=== PATIENT | female | born 1990 | race Caucasian/White ===

== ENCOUNTER 2017-08-17 12:36 | Outpatient (CLI) | payer OTHER ==
--- NOTE | 2017-08-17 15:26 | MRI ---
EXAM: BRAIN MRI WITH AND WITHOUT CONTRAST: COMPARISON: 11/23/16. HISTORY: Multiple sclerosis. Annual exam. TECHNIQUE: A brain MRI is performed with and without intravenous Gadolinium administration. Multisequential, mu ltiplanar imaging is performed. FINDINGS: No hemorrhage on the axial gradient echo sequence. Calvarium has a normal marrow signal intensity. Midline brain parenchymal structures are unremarkabl e. Stable FLAIR and white matter hyperintensities as well as stable hyperintensities along the corpus ca llosum. There is no associated restricted diffusion. No associated enhancement. Central arterial f low voids are maintained. No restricted diffusion. There is opacification of bilateral mastoid air cells, unchanged. Mild mucosal thickening of the sin uses. Developmental venous anomaly in the right frontal region is redemonstrated. No pathologic enhancement of the brain parenchyma. IMPRESSION: 1. Essentially stable demyelinating plaques. 2. No evidence of enhancement or restricted diffusion to suggest active demyelination. POS: [facility]
--- NOTE | 2017-08-17 15:33 | MRI ---
CERVICAL SPINE MRI WITH AND WITHOUT CONTRAST: DATE: 08/17/17. COMPARISON: 11/23/16. HISTORY: Multiple sclerosis. TECHNIQUE: Multiplanar, multisequence MR imaging of the cervical spine is obtained with and without contrast. FINDINGS: The sagittal STIR imaging demonstrates no focal area of osseous marrow edema. There is mild degenerative change at the atlantoaxial interspace, stable. C2-3: Mild facet hypertrophy on the left. No significant central canal or neural foraminal stenosis . C3-4: There is mild facet and uncovertebral osteophyte formation on the left. There is disk desicca tion. There is no significant central canal or neural foraminal stenosis. C4-5: Intervertebral disk height and signal intensity is within normal limits. No significant centr al canal or neural foraminal stenosis. C5-6: There is disk desiccation and mild disk bulge with partial effacement of the ventral thecal sa c and mild central canal stenosis. No significant neural foraminal stenosis. C6-7: No significant central canal or neural foraminal stenosis. C7-T1: No significant central canal or neural foraminal stenosis. There is a central/posterior T2 hyperintense lesion within the cervical cord measuring 8 mm in transv erse dimension at the C3 level, stable when compared to the 11/23/16 exam. At C4-5 level, there is a faint lesion of increased T2 signal intensity within the right lateral aspe ct of the cervical cord, which appears less conspicuous on the 11/23/16 examination. No definite new cervical cord lesion is identified. The postcontrast imaging demonstrates no abnormal enhancement involving the cervical cord, the imaged osseous structures, or the intervertebral disks. IMPRESSION: Two foci of abnormal signal intensity identified within the cervical cord, consistent with demyelinat ing disease. The lesion involving the majority of the cord at C3 is unchanged. The lesion involving the right hemicord at C5 is less conspicuous than on prior imaging. No new lesions are seen. POS: [facility]
== END 2017-08-17 12:37 | disposition home or self-care (01) ==
LOC: SCSMRI 12:36
PROVIDERS: ATTEND Psychiatry & Neurology Neurology
DX: G35 Multiple sclerosis (principal); M89.9 Disorder of bone, unspecified
CPT/HCPCS: 70553; 72156

== ENCOUNTER 2018-05-30 12:24 | Outpatient (CLI) | payer OTHER ==
[~2018-05-30 12:24] MED LIST: Gadobenate Dimeglumine 529 MG/1 ML (20ML VIAL) ONE
--- NOTE | 2018-05-30 15:51 | MRI ---
BRAIN MRI WITH AND WITHOUT CONTRAST: COMPARISON: 08/17/17. HISTORY: Multiple sclerosis. Annual exam. TECHNIQUE: A brain MRI was performed with and without intravenous Gadolinium administration. Multisequential, m ultiplanar imaging was performed. FINDINGS: No parenchymal mass, mass effect, or midline shift. Brain volume, age appropriate. Cortical alva-wh ite matter differentiation is preserved. The ventricles and sulci are patent and symmetric. The calvarium has a normal T1 marrow signal intensity. Midline brain parenchymal structures are unre markable. This corresponds to a 4 mm enhancing focus in the left occipital lobe, not appreciated on the previou s exam. The sagittal FLAIR sequence does demonstrate a hyperintensity corresponding to the area of e nhancement suggesting an active demyelinating plaque. Central arterial flow voids are maintained. Absent restricted diffusion. Note is made of a developmental venous anomaly along the right frontal lobe, unchanged. IMPRESSION: Solitary focus of enhancement in the left occipital white matter suggesting an active demyelinating p laque. Additional areas of active demyelination are not appreciated. POS: [facility]
--- NOTE | 2018-05-30 16:06 | MRI ---
MRI CERVICAL SPINE WITH AND WITHOUT CONTRAST: 05/30/18 HISTORY: Followup exam. Multiple sclerosis. COMPARISON: 08/17/17. TECHNIQUE: Cervical spine MRI is performed with and without intravenous gadolinium administration. Multisequenti al, multiplanar imaging is performed. FINDINGS: Appropriate T1 narrow signal intensity of the cervical vertebrae. Vertebral body height is maintained . There is no fracture. No significant STIR hyperintensity to suggest vertebral body edema or ligamen tous injury. The visualized brain parenchyma is unremarkable. There is abnormal signal intensity in t he upper cervical cord. Postcontrast images do not demonstrate any associated enhancement. Throughout the cervical spine, there is no significant central canal stenosis or foraminal narrowing. C2-C3: No significant disc osteophyte complex. No significant central canal stenosis or neural forami nal narrowing. C3-C4: No significant disc osteophyte complex. No significant central canal stenosis or foraminal jorden rowing. C4-C5: No significant disc osteophyte complex. Minimal central disc bulge is noted. No significant ce ntral canal stenosis or foraminal narrowing. C5-C6: Mild loss of disc space height. There is a central right paracentral disc bulge. Ventral CSF s ignal intensity is maintained. Minimal central canal stenosis. Neural foramina are patent. C6-C7 and C7-T1: No significant central canal stenosis or foraminal narrowing. There is abnormal T2 signal intensity in the cervical cord starting at the superior end plate of C3 e xtending inferiorly to the mid C4 level. Additional subtle hyperintensity on the right aspect of the cord is noted at the C4-C5 disc space. The overall degree and distribution of cord signal abnormality is unchanged. No significant associated cord expansion or atrophy. No associated enhancement. IMPRESSION: 1. Essentially stable intramedullary lesion in the upper cervical cord at C3 and C4. No associat ed enhancement to suggest active demyelination. 2. Stable lesion at the C4-C5 level. POS: [facility]
== END 2018-05-30 12:25 | disposition home or self-care (01) ==
LOC: SCSMRI 12:24
PROVIDERS: ATTEND Psychiatry & Neurology Neurology
DX: G35 Multiple sclerosis (principal); M89.9 Disorder of bone, unspecified
CPT/HCPCS: 70553; 72156; A9579

== ENCOUNTER 2019-03-19 12:56 | Outpatient (CLI) | payer OTHER ==
--- NOTE | 2019-03-19 16:27 | MRI ---
MRI Cervical spine with and without contrast: HISTORY: Multiple sclerosis. Follow-up evaluation. COMPARISON: 05/30/2018. FINDINGS: The craniocervical junction is unremarkable. Again noted is the abnormal increased T2-weighted signal intensity lesion in the upper cervical spina l cord at the level of the C3 vertebral body unchanged in size or appearance. The signal abnormality in the right hemicord at the C4-5 level is also again seen and stable. No new signal abno rmalities are seen in the spinal cord, and there is no expansion of the spinal cord. No abnormal areas of enhancement are seen within the spinal cord. Paravertebral soft tissues have a normal appearance and normal signal intensity. Normal signal intensity is seen in the bone marrow. C1-2:No significant stenosis. C2-3: There is no disc bulge or disc herniation. The central spinal canal and neural foramina are at the C4-5 level is again seen and unchanged. Patent. C3-4: There is a minimal disc osteophyte complex present. There is no significant narrowing of the ce ntral spinal canal. Mild bilateral neural foraminal narrowing is present. C4-5: There is no disc bulge or disc herniation. The central spinal canal and neural foramina are pat ent. C5-6: Again, there is a mild broad-based disc osteophyte complex which does result in mild effacement of ventral subarachnoid space. The neural foramina are patent C6-7: There is no disc bulge disc herniation. The central spinal canal and neural foramina are patent . C7-T1: There is no disc bulge or disc herniation. The central spinal canal and neural foramina are pa tent. IMPRESSION: 1. Stable intramedullary lesion upper cervical spinal cord at the level of C3 vertebral body with an additional signal abnormality in the right aspect of spinal cord at the C4-5 level likely corresponding to patient's known demyelinating process. No associated abnormal enhancement is seen to suggest an active demyelinating plaque. No new signal abnormalities are seen in the spinal cord. 2. Mild degenerative changes in the cervical spine unchanged from prior study.
--- NOTE | 2019-03-19 16:30 | MRI ---
MRI BRAIN WITH AND WITHOUT CONTRAST: DATE: 03/19/19 HISTORY: 28-year-old female with multiple sclerosis. Follow-up. COMPARISON: 05/30/18. TECHNIQUE: Multiple sequences obtained in axial, sagittal, and coronal planes; pre and post IV injection of gado linium-based contrast agent: 18 mL MultiHance. FINDINGS: Again noted are the several small focal T2-hyperintense white matter lesions, including one in the le ft upper corpus callosum and centrum semiovale, a tiny one lateral to that in the left webb radiata , one in the left webb radiata adjacent to the posterior body of the left lateral ventricle, and in the periventricular white matter adjacent to the right lateral ventricular trigone. Previously, there was a tiny focus of intra-axial enhancement in the left occipital deep white matter . That has resolved. Again noted is the enhancing medusa head intra-axial blood vessels and the large draining vein, in th e right parasagittal frontal lobe representing DVA (developmental venous anomaly). No new demyelinating lesions are identified. Ventricles are normal in size and configuration. No rece nt or remote intra-axial hemorrhage. No mass effect, midline shift, or extra-axial fluid collection. IMPRESSION: 1. Evidence for multiple sclerosis: A small number of demyelinating plaque lesions in the cerebrum bilaterally, left more than right. 2. Previous tiny focus of active demyelination involving a left occipital white matter lesion, no lo nger enhances. 3. Otherwise, no other interval change. JN Chloé POS: [facility]
== END 2019-03-19 12:57 | disposition home or self-care (01) ==
LOC: SCSMRI 12:56
PROVIDERS: ATTEND Nurse Practitioner Acute Care
DX: G35 Multiple sclerosis (principal); M47.812 Spondylosis without myelopathy or radiculopathy, cervical region; I67.2 Cerebral atherosclerosis; G37.9 Demyelinating disease of central nervous system, unspecified; G95.9 Disease of spinal cord, unspecified
CPT/HCPCS: 70553; 72156; A9577

== ENCOUNTER 2019-07-17 17:04 | Observation (INO) | payer OTHER ==
[2019-07-17] MEDS ORDERED: Morphine 4 MG/ML VIAL ONE ×2 (18:07→19:26)
[2019-07-17] MEDS ORDERED: Ondansetron PF 4 MG/2 ML Vial ONE (18:07)
[2019-07-17 18:15] LABS: #Eosinphils 0.1 thou/uL (0.0-0.7); #Monocytes 0.6 thou/uL (0.11-0.59); #Neutrophils 6.5 thou/uL (1.40-6.50); %Basophils 0.5 % (0.0-1.0); %Eosinophils 0.9 % (0.0-10.0); %Lymphocytes 21.8 % (21.0-51.0); %Monocytes 6.1 % (0.0-10.0); %Neutrophils 70.6 % (42.0-75.0); Hemoglobin 12.3 g/dL (12.0-16.0); Mean Corpuscular HGB CONC 34.5 g/dL (32.0-36.0); Mean Corpuscular Hemoglobin 31.9 pg (27.0-31.0); Mean Corpuscular Volume 92.5 fL (78.0-98.0); Mean Platelet Volume 7.5 fL (7.4-10.4); Platelet Count 233 thou/uL (130-400); RBC Distribution Width 12.4 % (11.5-14.5); Red Blood Cell (RBC) Count 3.87 mill/uL (4.20-5.40); White Blood Cell (WBC) Count 9.2 thou/uL (4.8-10.8)
[2019-07-17 18:37] LABS: ALT (SGPT) 21 U/L (8-55); AST (SGOT) 16 U/L (5-34); Albumin 4.3 g/dL (3.5-5.0); Alkaline Phosphatase 83 U/L (40-110); Anion Gap 11 mmol/L (10-20); BUN (Urea Nitrogen) 10 mg/dL (7.0-18.7); Bilirubin, Total 0.4 mg/dL (0.2-1.2); Calc. Creatinine Clearance 0 mL/min (70-130); Calcium 9.4 mg/dL (7.8-10.44); Carbon Dioxide 24 mmol/L (22-29); Chloride 107 mmol/L (98-107); Estimated GFR-MDRD 68; Globulin 2.9 g/dL (2.4-3.5); Glucose 94 mg/dL (70-105); Potassium 4.1 mmol/L (3.5-5.1); Protein, Total 7.2 g/dL (6.0-8.3); Sodium 138 mmol/L (136-145)
[2019-07-17 18:59] LABS: Bilirubin Negative (Negative); Blood, Urine 2+ (Negative); Calcium Oxalate Crystals Rare HPF (None Seen); Clarity Clear (Clear); Glucose, Urine (Dipstick) Normal (Negative); Leukocyte Negative Leu/uL (Negative); Mucous/LPF 2+ LPF (<2+); Nitrite Negative (Negative); Protein, Urine (Dipstick) 70 mg/dL (Neg-Trace); RBC/HPF 21-50 HPF (0-3); Squamous Epithelial 0-3 HPF (0-3); Urobilinogen Normal mg/dL (Less than 2)
[2019-07-17 19:01] LABS: Pregnancy Test - Urine (BHCG) Negative (Negative); Pregu Control Background? CLEAR/WHITE (CLR/WHITE); Pregu Control Bar Appear? YES (CONTROL BAR); Specific Gravity 1.033 (1.002-1.036)
[2019-07-17 19:08] LABS: Bacteria/HPF Rare-Few HPF (None Seen)
[2019-07-17] MEDS ORDERED: Acetaminophen 325 MG TAB PO PRN (22:39)
[2019-07-17] MEDS ORDERED: Ondansetron PF 4 MG/2 ML Vial IVP PRN (22:39)
[2019-07-17] MEDS ORDERED: Morphine 4 MG/ML VIAL SLOW IVP PRN (22:40)
[2019-07-17 23:30] VITALS: BMI 33.6
[2019-07-17] MEDS: Sodium Chloride 0.9% 1,000 ML IV SCH (23:39)
[2019-07-18] MEDS ORDERED: Sodium Chloride 0.9% 1,000 ML IV SCH ×2 (07:00→19:45)
[2019-07-18] MEDS ORDERED: HYDROcodone/Acetaminophen 5/325 mg Tablet PO PRN (08:43)
[2019-07-18] MEDS: Morphine 4 MG/ML VIAL SLOW IVP PRN (08:49)
[2019-07-18] MEDS: Sodium Chloride 0.9% 1,000 ML IV SCH (09:02)
[2019-07-18] MEDS ORDERED: metFORMIN 500 MG TAB PO SCH (09:15)
--- NOTE | 2019-07-18 11:22 | HP ---
REASON FOR ADMISSION: Ureteral colic. CHIEF COMPLAINT: "My back hurts and I have a kidney stone." HISTORY OF PRESENT ILLNESS: Mrs. Lamb is a 28-year-old white female, who presented to the emergency room last night with fairly severe right-sided flank pain. The pain was approximately 9/10, severe, throbbing with radiation down toward her groin. She had associated nausea and some vomiting, but no fevers. She went to the emergency room, where she underwent a CT scan demonstrating a 9 mm proximal right ureteral stone with mild hydronephrosis. Attempts to get her pain under control in the ER were unsuccessful and I was contacted for admission and possible treatment. I recommend that she be admitted to the hospital for pain control. On my discussion with the patient, she states that she has a history of kidney stones in the past, but has been able to pass all of them. She has never had a stone quite this large. She did have gross hematuria approximately a month ago, which she thinks may be attributed to the stone at that time, but she did not have any pain at that time. She does have a history of multiple sclerosis and states that she has been having urinary frequency for quite some time, although it is not terribly bothersome. It is somewhat annoying. She denies any difficulty with urination. She does not have history of recurrent UTIs or previous urologic surgeries. ALLERGIES: NONE. HOME MEDICATIONS: 1. Metformin. 2. Phentermine. PAST MEDICAL HISTORY: 1. PCOS. 2. Multiple sclerosis, relapsing, remitting. 3. Nephrolithiasis. PAST SURGICAL HISTORY: None. FAMILY HISTORY: Noncontributory. SOCIAL HISTORY: The patient denies alcohol abuse or illicit drug use or tobacco abuse. She used to smoke, but quit approximately 3-1/2 years ago. She does work as a nurse in [place]. REVIEW OF SYSTEMS: A 12-point review of systems reviewed, negative other than what was commented on the HPI. PHYSICAL EXAMINATION: VITAL SIGNS: Temperature 98.2, pulse 64, respirations 14, blood pressure 105/67, saturation 99% on room air. GENERAL: No apparent distress. Well-nourished, well-developed, overweight. Answering questions appropriately. HEENT: Normocephalic, atraumatic. Pupils are symmetric and round. Wears glasses. Moist mucous membranes. Trachea midline. CARDIOVASCULAR: Regular rate and rhythm. Normal S1, S2. Symmetric pulses. CHEST: No increased work of breathing. Symmetric expansion. LUNGS: Clear anteriorly. ABDOMEN: Soft, nontender, and nondistended. Positive bowel sounds. No organomegaly, hernias or masses. Very minimal right CVA tenderness. GENITOURINARY: Exam is deferred at this time. EXTREMITIES: No clubbing, cyanosis, or edema. MUSCULOSKELETAL: No joint deformities or joint erythema noted. Full range of motion. SKIN: Warm and dry. Good turgor. No rashes or lesions. NEUROLOGIC: Cranial nerves 2 through 12 grossly intact. No focal or sensory motor deficits identified. LYMPH NODES: There is no lymphadenopathy in the cervical, supraclavicular, axillary, or popliteal regions. PSYCHIATRIC: Alert and oriented x3. Appropriate mood and affect. LABORATORY EVALUATION: The full set of labs are in the [facility], which I have reviewed. Of note, the patient's white count is 9.2 with hemoglobin 12.3, platelet count of 233. Creatinine is currently 0.96. Urinalysis demonstrates 2+ blood, 70 protein, 21 to 50 red cells, 7 to 10 white cells, rare bacteria, rare calcium oxalate crystals. CT; I have reviewed the CT report myself as well as the imaging, which I have also personally reviewed. CT demonstrates a 9 mm proximal right ureteral stone with [id number] hydronephrosis. No other stones are noted bilaterally. ASSESSMENT AND PLAN: A 28-year-old white female with multiple sclerosis with overactive bladder-type symptoms with the current 9 mm proximal right ureteral stone in the setting of history of nephrolithiasis. Given these findings, I would recommend treatment of the overactive bladder symptoms as an outpatient. There is nothing critical that needs to be addressed at this time. Regarding her stone, we discussed options for management. She is currently controlled on morphine, but obviously, this is not going to be a long-term solution. I recommended either ureteral stenting at this time with definitive stone management next week or we could wait until tomorrow and do a definitive ureteroscopy with laser lithotripsy or extracorporeal shockwave lithotripsy. We discussed both options and with the pros and cons of each, and she has elected for ureteroscopy with a higher stone clearance rate. I went over the procedure in detail including the postoperative recovery, need for ureteral stenting and risks, which include, but are not limited to bleeding, infection, ureteral injury, ureteral splitting, stricture formation, damage to the kidneys, ureter, bladder, incomplete stone removal, and need for further surgeries. She understands these risks and states that she is willing to proceed forward. We will plan her ureteroscopy tomorrow. She can eat today. We will keep her on pain control and plan for n.p.o. after midnight with SCDs. Ureteroscopy tomorrow. She can be discharged postoperatively and she will follow up with me as an outpatient for stone metabolic workup and control of urinary symptoms. We will plan to leave the stent on a string for removal. I did tell her that this the stent is not permanent and she must remove and keep follow up appointments to avoid retained ureteral stent, which can cause significant morbidity and mortality. She understands this and is clear with instructions and all plans. Job ID: [id number]
[2019-07-18] MEDS: Docusate 100 MG CAP PO SCH ×2 (11:32→19:54)
[2019-07-18] MEDS: Ondansetron PF 4 MG/2 ML Vial SLOW IVP PRN (19:54)
[2019-07-19] MEDS: Morphine 4 MG/ML VIAL SLOW IVP PRN (05:58)
[2019-07-19] MEDS: Docusate 100 MG CAP PO SCH (08:48)
[2019-07-19] MEDS: Ondansetron PF 4 MG/2 ML Vial SLOW IVP PRN (08:48)
[2019-07-19] MEDS ORDERED: Iothalamate Meglumine 60% 50 ML VIAL FS ONE (12:17)
[2019-07-19] MEDS ORDERED: Fentanyl 100 MCG/2 ML VIAL ONE ×5 (12:41→15:12)
[2019-07-19] MEDS ORDERED: Midazolam HCl 2 mg/2 ml Vial ONE (12:51)
[2019-07-19] MEDS ORDERED: cefTRIAXone\\ROCEPHIN 1 GM VIAL ONE (13:05)
[2019-07-19] MEDS ORDERED: Sodium Chloride 0.9% 100 ML ONE (13:05)
[2019-07-19] MEDS ORDERED: B & O ONE (14:14)
[2019-07-19] MEDS ORDERED: Promethazine HCl 25 MG/ML VIAL IM PRN (14:30)
[2019-07-19] MEDS ORDERED: Ondansetron HCl/PF 4 MG/2 ML Vial IVP PRN (14:30)
[2019-07-19] MEDS ORDERED: Promethazine HCl 25 MG/ML VIAL SLOW IVP PRN (14:30)
[2019-07-19] MEDS ORDERED: Morphine Sulfate 2 MG/ML SYRINGE SLOW IVP PRN (14:30)
[2019-07-19] MEDS ORDERED: Phenazopyridine HCl 97.5 MG TABLET PO PRN (14:58)
[2019-07-19] MEDS ORDERED: Oxybutynin 5 MG TAB PO PRN (14:58)
[2019-07-19 15:37] VITALS: TEMP 97.8
[2019-07-19] MEDS ORDERED: metFORMIN 500 MG TAB PO SCH (17:00)
--- NOTE | 2019-07-19 17:11 | OP ---
DATE OF PROCEDURE: 07/19/2019 SERVICE: Urology. PREOPERATIVE DIAGNOSIS: Right ureteral stone. POSTOPERATIVE DIAGNOSIS: Right ureteral stone. PROCEDURES PERFORMED: Right ureteroscopy, laser lithotripsy, basket extraction of stone, and placement of a 6 x 26 double-J stent with string attached. INDICATIONS FOR PROCEDURE: Ms. Lamb is a 28-year-old white female with history of MS and history of prior nephrolithiasis, presented to the ER with severe right flank pain. She was found to have a 9 mm stone. We scheduled her for right ureteroscopy with laser lithotripsy. She had all risks and benefits, and alternatives explained, and she agreed to proceed forward. DESCRIPTION OF PROCEDURE: After identification of armband and verification of consent, the patient was brought back to the operating room, where she underwent general anesthesia with endotracheal intubation. She was then placed into dorsal lithotomy position and prepped and draped in usual sterile fashion. After appropriate time-out, a lubricated 22-Bengali rigid cystoscope was introduced per urethra into the bladder. The bladder was grossly unremarkable. The ureters were in orthotopic location. Attention was turned to the right ureteral orifice, which was cannulated with a 0.035 Sensor wire up to the level of renal pelvis. The stone was seen as a radiopaque density. A dual-lumen catheter was advanced over the Sensor wire at the level of the proximal ureter just distal to the stone. An Amplatz Super Stiff wire was then passed through the second lumen of the dual-lumen catheter into the renal pelvis. The dual-lumen was removed. An 11/13 x 36 cm ureteral access sheath was advanced over the Super Stiff wire, but there was difficulty getting past the mid ureter, where the iliac vessels were. It was likely the ureter was narrow at this point; therefore, we left the sheath there and pulled out the inner cannula and Super Stiff wire, leaving the Sensor wire in place as a safety wire. A flexible digital ureteroscope was then passed through the ureteral access sheath up into the proximal ureter, where the stone was encountered. Using a 273 micron ball-tip laser fiber, the stone was fragmented into smaller pieces and then a 1.9-Bengali ZeroTip Nitinol basket was used to remove the pieces. Some of the pieces did go up into the kidney, where we went into ureteroscopy into the kidney to remove the remaining pieces. Upon completion, there were no fragments in the ureter and all pieces in the kidney were removed except those that were at 1 mm or less. Satisfied that all fragments had been removed. Pull-back ureteroscopy was employed. No additional stents were found within the ureter. There was no ureteral splitting or tearing. The sheath and the ureteroscope removed leaving the Sensor wire in place. The cystoscope was then backloaded back into the bladder over the Sensor wire, and a 6 x 26 double-J stent with string attached was advanced over the Sensor wire up to the level of the kidney. The wire was removed leaving a good curl in the kidney and a good curl in the bladder. The cystoscope was then removed, and the string was affixed to the patient's inner thigh with an OpSite. A B and O suppository was placed in the rectum. The bladder was emptied prior to cystoscope removal. She was then awakened, taken to PACU for recovery in stable condition. COMPLICATIONS: None. ESTIMATED BLOOD LOSS: Minimal. RETAINED TUBES AND DRAINS: A 6 x 26 double-J stent on the right. SPECIMEN: Stone for stone analysis. DISPOSITION: The patient will be discharged home and follow up with me in approximately 2 to 3 weeks for postop check. She will be instructed to remove her stent on Tuesday morning by this coming week. Job ID: [id number]
[2019-07-19 17:31] VITALS: BP 91/45
== END 2019-07-19 17:30 | disposition home or self-care (01) ==
LOC: ERS 17:04 → SJJU 22:19 → SURG A 07-19 10:08 → SJJU 07-19 10:10
PROVIDERS: ADMIT Urology; ATTEND Urology
PROC: 0TF68ZZ Fragmentation in Right Ureter, Via Natural or Artificial Opening Endoscopic (ICD-10-PCS; principal; 2019-07-19)
PROC: 0T768DZ Dilation of Right Ureter with Intraluminal Device, Via Natural or Artificial Opening Endoscopic (ICD-10-PCS; 2019-07-19)
DX: N13.2 Hydronephrosis with renal and ureteral calculous obstruction (principal); G35 Multiple sclerosis; E28.2 Polycystic ovarian syndrome; Z87.891 Personal history of nicotine dependence; Z79.84 Long term (current) use of oral hypoglycemic drugs; Z79.899 Other long term (current) drug therapy
CPT/HCPCS: 36415; 76000; 81003; 81015; 81025; 82365; 88300; 96361; 96374; 96375; 96376; C1769; G0378; J0696; J2250; J2270; J2405; J3010; J3490

== ENCOUNTER 2019-10-19 10:05 | Outpatient (CLI) | payer OTHER ==
--- NOTE | 2019-10-19 10:27 | ULT ---
US Renal Bilateral STANDARD: 10/19/2019 12:00 AM CLINICAL HISTORY: Renal calcifications. STUDY: Renal ultrasound COMPARISON: CT abdomen/pelvis 07/17/2019 FINDINGS: Right kidney: Echogenicity: Normal. Masses/cysts: None. Hydronephrosis: None. Calcifications: None. Length: 10.9 cm Left kidney: Echogenicity: Normal. Masses/cysts: None. Hydronephrosis: None. Calcifications: None. Length: 11.3 cm Limited visualization of the urinary bladder is unremarkable. IMPRESSION: Unremarkable renal ultrasound
== END 2019-10-19 10:06 | disposition home or self-care (01) ==
LOC: BICULT 10:05
PROVIDERS: ATTEND Urology
DX: N20.0 Calculus of kidney (principal)
CPT/HCPCS: 76770

== ENCOUNTER 2020-03-12 07:37 | Outpatient (CLI) | payer OTHER ==
--- NOTE | 2020-03-12 09:38 | MRI ---
MRI BRAIN WITH AND WITHOUT CONTRAST: DATE: 03/12/2020 HISTORY: 29-year-old female with multiple sclerosis follow-up COMPARISON: 03/19/2019 TECHNIQUE: Multiplanar, multisequence MRI of the brain performed pre- and post-IV injection of gadolinium based contrast agent. FINDINGS: Again noted are the several small focal T2-hyperintense white matter lesions, including one in the le ft upper corpus callosum and centrum semiovale, a tiny one lateral to that in the left webb radiata, one in the left webb radiata adjacent to the posterior body of the left lateral ventricle, and in the periventricular white matter adjacent to the right lateral ventricular trigone. Again noted is the enhancing medusa head intra-axial blood vessels and the large draining vein, in th e right parasagittal frontal lobe representing DVA (developmental venous anomaly). No new demyelinating lesions are identified. Ventricles are normal in size and configuration. No recent or r emote intra-axial hemorrhage. No mass effect, midline shift, or extra-axial fluid collection. IMPRESSION: 1. Evidence for multiple sclerosis: A small number of demyelinating plaque lesions in the cerebrum bi laterally, left more than right. 2. No interval change.
--- NOTE | 2020-03-12 10:23 | MRI ---
EXAM: CERVICAL SPINE MRI WITH AND WITHOUT CONTRAST: COMPARISON: 03/19/2019. HISTORY: Multiple sclerosis.. FINDINGS: Appropriate T1 marrow signal intensity of the cervical vertebra. Cervical spine vertebral body height is maintained. There is no fracture. No significant STIR hyperintensity to suggest vertebral body edema or ligamentous injury. There is T2 and STIR hyperintensity involving the spinal cord at the C2 and C3 level. Postcontrast im ages do not demonstrate any abnormal enhancement to suggest active demyelination. Small focus of T2 and STIR hyperintensity along the right aspect of the cord at C4-C5 disc space. The overall changes o f the spinal cord are similar to the previous exam. No additional cord signal abnormalities are appreciated on the current exam. C2-C3: No significant central canal stenosis or significant neural foraminal narrowing. C3-C4: Disc desiccation without significant loss of disc space height. No significant central canal s tenosis or significant neural foraminal narrowing. C4-C5: Adequate disc hydration. Minimal central disc herniation. Minimal central canal stenosis. Neur al foramina are patent. C5-C6: Disc desiccation with mild loss of disc space height. Central disc herniation deforms the thec al sac. Mild central canal stenosis. Neural foramina are patent. C6-C7: No significant central canal stenosis or significant neural foraminal narrowing. C7-T1: No significant central canal stenosis or significant neural foraminal narrowing. IMPRESSION: 1. Stable demyelinating plaques in the cervical cord. No evidence of enhancement to suggest active de myelination. 2. Degenerative changes of the cervical spine as described above. Transcribed Date/Time: 03/12/2020 10:34 AM
== END 2020-03-12 07:38 | disposition home or self-care (01) ==
LOC: BICMRI 07:37
PROVIDERS: ATTEND Nurse Practitioner Acute Care
DX: G35 Multiple sclerosis (principal); M47.812 Spondylosis without myelopathy or radiculopathy, cervical region
CPT/HCPCS: 70553; 72156

== ENCOUNTER 2021-03-04 08:19 | Outpatient (CLI) | payer OTHER ==
[2021-03-04] MEDS ORDERED: Magnevist 469MG/ML 20 ML VIAL ONE ×3 (10:34)
== END 2021-03-04 08:20 | disposition home or self-care (01) ==
LOC: BICMRI 08:19
PROVIDERS: ATTEND Nurse Practitioner Acute Care
DX: G35 Multiple sclerosis (principal); M47.812 Spondylosis without myelopathy or radiculopathy, cervical region; M47.814 Spondylosis without myelopathy or radiculopathy, thoracic region; G95.89 Other specified diseases of spinal cord
CPT/HCPCS: 70553; 72156; 72157; A9579